=== PATIENT | male | born 1975 | race Caucasian/White ===

== ENCOUNTER → 2016-08-26 | Outpatient (CLI) | payer OTHER ==
--- NOTE | 2016-08-26 22:45 | MR ---
EXAMINATION TYPE: MR lumbar spine wo con DATE OF EXAM: 08/26/2016 COMPARISON: 01/01/2014 HISTORY: low back pain x6 years TECHNIQUE: T1 and T2 axial and sagittal images of the lumbar spine are submitted. FINDINGS: There is no abnormal signal seen within the visualized spinal cord or paraspinal soft tissu es. Prominent central canal noted which is stable from the previous exam. At T12-L1 there is degenerative disc disease with mild right paracentral disc bulging retrospectively stable from previous exam. At L1-2 there is no disc herniation, degenerative disc disease, or canal stenosis. No foraminal encro achment. Mild hypertrophic change since. At L2-3 there is moderate degenerative disc disease with diffuse circumferential disc bulging. No Can al stenosis. There is facet arthropathy and mild bilateral foraminal encroachment greater on the left . At L3-4 there is moderate degenerative disc disease with a Schmorl's node. There is circumferential d isc bulging with moderate bilateral foraminal encroachment and borderline to mild canal stenosis. Fin dings stable. Discogenic marrow changes noted. At L4-5 there is no disc herniation or canal stenosis there is hypertrophic change of the facets. Mil d circumferential disc bulging with mild bilateral foraminal encroachment.. At L5-S1 there is degenerative disc disease. There is hypertrophic change of the facets but no canal stenosis. No foraminal encroachment. IMPRESSION: 1. Multilevel degenerative disc disease, disc bulging and hypertrophic changes as discussed above ke ear stable. The result in multilevel foraminal encroachment. There is borderline to mild canal stenos is at L3-L4.
== END | disposition home or self-care (01) ==
LOC: RADMRIMAIN 21:45
PROVIDERS: ATTEND Family Medicine
DX: M48.06 Spinal stenosis, lumbar region (principal); M51.26 Other intervertebral disc displacement, lumbar region; M51.37 Other intervertebral disc degeneration, lumbosacral region
CPT/HCPCS: 72148

== ENCOUNTER → 2017-04-24 | Outpatient (CLI) | payer OTHER ==
--- NOTE | 2017-04-24 15:56 | XR ---
EXAMINATION TYPE: XR cervical spine comp DATE OF EXAM: 04/24/2017 COMPARISON: NONE HISTORY: Pain TECHNIQUE: Four views are submitted. FINDINGS: The odontoid is intact. There are no compression deformities. The prevertebral soft tissue structur es are within normal limits. IMPRESSION: 1. No acute process. If symptoms persist consider MRI.
== END | disposition home or self-care (01) ==
LOC: RADXRYALE 15:32
PROVIDERS: ATTEND Physician Assistant Medical
DX: M50.10 Cervical disc disorder with radiculopathy, unspecified cervical region (principal)
CPT/HCPCS: 72050

== ENCOUNTER → 2022-09-16 | Outpatient (CLI) | payer BC ==
--- NOTE | 2022-09-17 22:00 | XR ---
EXAMINATION TYPE: XR cervical spine comp DATE OF EXAM: 09/16/2022 COMPARISON: 04/24/2017 HISTORY: 47-year-old male left-sided radiculopathy. [id number] RADICULOPATHY, MUSCLE STRAIN TECHNIQUE: 6 views FINDINGS: Normal odontoid view. Reverse of the normal cervical lordosis is preserved alignment. No predental sp nevaeh widening or prevertebral soft tissue swelling. Very mild anterior spondylosis C5-C6. No significa nt bony neuroforaminal narrowing seen on either side. IMPRESSION: Reversal of the normal cervical lordosis could be positional or due to muscle spasm. No prevertebral soft tissue swelling or malalignment. Very mild early degenerative disc disease C5-C6.
== END | disposition home or self-care (01) ==
LOC: RADXRYALE 15:32
PROVIDERS: ATTEND Physician Assistant
DX: M50.122 Cervical disc disorder at C5-C6 level with radiculopathy (principal); S16.1XXA Strain of muscle, fascia and tendon at neck level, initial encounter; X58.XXXA Exposure to other specified factors, initial encounter
CPT/HCPCS: 72050